=== PATIENT | male | born 1960 | race Two or more races ===

== ENCOUNTER 2024-03-03 05:58 | Day surgery (SDC) | payer OTHER ==
[~2024-03-03 05:58] MED LIST: ADULT LOW DOSE81 M1; NORVASC5 MG; ROSUVASTATIN CA10 MG; SYNTHROID; UROXATRAL10 MG; VALSARTAN160 MG
[2024-03-03] MEDS ORDERED: LIDOCAINE HCL 1%/EPINEPHRINE 20ML VIAL IJ ONE (10:00)
[2024-03-03] MEDS ORDERED: LIDOCAINE HCL 1% 20ML VIAL IJ ONE (10:00)
[2024-03-03] MEDS ORDERED: CEFAZOLIN SODIUM 1,000 MG VIAL IV ONE (10:00)
[2024-03-03] MEDS ORDERED: PANTOPRAZOLE SODIUM 40 MG/VIAL VIAL IV ONE (10:00)
[2024-03-03] MEDS ORDERED: CEFAZOLIN SODIUM 1,000 MG VIAL IV SCH (11:15)
[2024-03-03] MEDS ORDERED: RINGERS SOLUTION,LACTATED 1,000 ML IV SCH (11:15)
[2024-03-03] MEDS ORDERED: FAMOTIDINE/PF 20 MG/10 ML SYRINGE IV SCH (11:15)
== END 2024-03-03 13:10 | disposition home or self-care (01) ==
LOC: CIR.AMB 05:58
PROVIDERS: ATTEND Specialist
DX: D17.0 Benign lipomatous neoplasm of skin and subcutaneous tissue of head, face and neck (principal); E03.9 Hypothyroidism, unspecified; I10 Essential (primary) hypertension; Z91.013 Allergy to seafood; Z88.5 Allergy status to narcotic agent